=== PATIENT | female | born 1980 | race African-American/Black ===

== ENCOUNTER 2019-04-03 14:43 | Day surgery (SDC) | payer OTHER, BC ==
[2019-04-03 15:41] VITALS: BP 128/67; PULSE 84; TEMP 98; BMI 37.4
[2019-04-03] MEDS ORDERED: IRON SUCROSE INJECTION 200 MG in SODIUM CHLORIDE 100 ML IVPB ONE (15:45)
== END 2019-04-03 16:27 | disposition home or self-care (01) ==
LOC: EDBD → FINFUSION 14:43 → FM/S 14:44 → FINFUSION 16:27
PROVIDERS: ATTEND Internal Medicine Hematology & Oncology
PROC: 3E033GC Introduction of Other Therapeutic Substance into Peripheral Vein, Percutaneous Approach (ICD-10-PCS; principal; 2019-04-03)
DX: D50.0 Iron deficiency anemia secondary to blood loss (chronic) (principal)
CPT/HCPCS: 96365; J1756

== ENCOUNTER 2019-04-10 15:26 | Day surgery (SDC) | payer OTHER, BC ==
[2019-04-10 15:58] VITALS: BP 109/61; PULSE 89; TEMP 98.5; BMI 37.4
[2019-04-10] MEDS ORDERED: IRON SUCROSE INJECTION 200 MG in SODIUM CHLORIDE 100 ML IVPB ONE (16:00)
== END 2019-04-10 17:00 | disposition home or self-care (01) ==
LOC: FINFUSION 15:26 → FM/S 15:31 → FINFUSION 17:00
PROVIDERS: ATTEND Internal Medicine Hematology & Oncology
PROC: 3E033GC Introduction of Other Therapeutic Substance into Peripheral Vein, Percutaneous Approach (ICD-10-PCS; principal; 2019-04-10)
DX: D50.9 Iron deficiency anemia, unspecified (principal)
CPT/HCPCS: 96365; J1756

== ENCOUNTER 2019-04-17 14:11 | Day surgery (SDC) | payer OTHER, BC ==
[2019-04-17 14:40] VITALS: BP 127/72; PULSE 73; TEMP 97.9; BMI 37.4
[2019-04-17] MEDS ORDERED: IRON SUCROSE INJECTION 200 MG in SODIUM CHLORIDE 100 ML IVPB ONE (15:00)
== END 2019-04-17 15:35 | disposition home or self-care (01) ==
LOC: FINFUSION 14:11 → FM/S 14:12 → FINFUSION 15:35
PROVIDERS: ATTEND Internal Medicine Hematology & Oncology
PROC: 3E033GC Introduction of Other Therapeutic Substance into Peripheral Vein, Percutaneous Approach (ICD-10-PCS; principal; 2019-04-17)
DX: D50.9 Iron deficiency anemia, unspecified (principal)
CPT/HCPCS: 96365; J1756

== ENCOUNTER 2019-04-24 14:02 | Day surgery (SDC) | payer OTHER, BC ==
[2019-04-24] MEDS ORDERED: IRON SUCROSE INJECTION 200 MG in SODIUM CHLORIDE 90 ML IVPB ONE (14:30)
[2019-04-24] MEDS ORDERED: IRON SUCROSE INJECTION 100 MG in SODIUM CHLORIDE 95 ML IVPB ONE (14:45)
[2019-04-24 15:21] VITALS: BP 110/76; PULSE 74; TEMP 98.5
== END 2019-04-24 15:15 | disposition home or self-care (01) ==
LOC: FINFUSION 14:02 → FM/S 14:06 → FINFUSION 15:15
PROVIDERS: ATTEND Internal Medicine Hematology & Oncology
PROC: 3E033GC Introduction of Other Therapeutic Substance into Peripheral Vein, Percutaneous Approach (ICD-10-PCS; principal; 2019-04-24)
DX: D50.0 Iron deficiency anemia secondary to blood loss (chronic) (principal)
CPT/HCPCS: 96365; J1756

== ENCOUNTER 2019-05-01 11:02 | Day surgery (SDC) | payer OTHER, BC ==
[2019-05-01] MEDS ORDERED: IRON SUCROSE INJECTION 200 MG in SODIUM CHLORIDE 100 ML IVPB ONE (11:45)
[2019-05-01 11:47] VITALS: BP 134/74; PULSE 74; TEMP 98.2
== END 2019-05-01 13:00 | disposition home or self-care (01) ==
LOC: FINFUSION 11:02 → FM/S 11:21 → FINFUSION 13:00
PROVIDERS: ATTEND Internal Medicine Hematology & Oncology
PROC: 3E033GC Introduction of Other Therapeutic Substance into Peripheral Vein, Percutaneous Approach (ICD-10-PCS; principal; 2019-05-01)
DX: D50.0 Iron deficiency anemia secondary to blood loss (chronic) (principal)
CPT/HCPCS: 96365; J1756